=== PATIENT | male | born 1970 | race Caucasian/White ===

== ENCOUNTER 2017-11-21 10:26 | Day surgery (SDC) | payer OTHER ==
[~2017-11-21] VITALS: Ht 177.8 cm; Wt 72.6 kg
[~2017-11-21 10:26] MED LIST: ZESTRIL10 MG PO
[2017-11-21 11:38] VITALS: BP 142/82
[2017-11-21 15:45] VITALS: BP 130/79
[2017-11-21 16:52] VITALS: BP 132/81
== END 2017-11-21 16:53 | disposition home or self-care (01) ==
LOC: SDC 10:26
DX: M76.71 Peroneal tendinitis, right leg (principal); S96.811A Strain of other specified muscles and tendons at ankle and foot level, right foot, initial encounter; M25.571 Pain in right ankle and joints of right foot; R53.1 Weakness; I10 Essential (primary) hypertension; Z87.891 Personal history of nicotine dependence; X58.XXXA Exposure to other specified factors, initial encounter
CPT/HCPCS: J0131; J0330; J0690; J1100; J1170; J2250; J2405; J2795; J3010; S0020